=== PATIENT | female | born 1995 | race Hispanic/Latino ===

== ENCOUNTER 2017-04-23 04:29 | Emergency (ER) | payer MEDICAID, OTHER ==
[2017-04-23 04:57] LABS: HCG,QUAL RESULT NEGATIVE (NEGATIVE)
[2017-04-23 05:00] LABS: APPEARANCE,URINE Clear (CLEAR); BILIRUBIN,URINE Negative (NEGATIVE); COLOR,URINE Yellow (YELLOW); GLUCOSE, URINE (UA) Negative (NEGATIVE); KETONES,URINE Trace mg/dL (NEGATIVE); LEUKOCYTE ESTERASE ,URINE Small (NEGATIVE); NITRATE,URINE Negative (NEGATIVE); OCCULT BLOOD,URINE Negative (NEGATIVE); PH,URINE 5.5 (5.0-8.0); PROTEIN,URINE Negative (NEGATIVE)
[2017-04-23 05:15] LABS: BACTERIA,URINE None Seen /HPF (None Seen); MUCUS,URINE Rare LPF (None Seen); RBC,URINE None Seen /HPF (0-1); SQUAMOUS EPITHELIAL CELL,UR Rare /LPF (0-2); WBC,URINE 0-1 /HPF (0-1)
[2017-04-23] MEDS ORDERED: KETOROLAC TROMETHAMINE 60 MG/2 ML VIAL ONE (05:28)
== END 2017-04-23 06:14 | disposition home or self-care (01) ==
LOC: EDH 04:29
DX: S39.011A Strain of muscle, fascia and tendon of abdomen, initial encounter (principal); Z72.0 Tobacco use; Z98.890 Other specified postprocedural states; X58.XXXA Exposure to other specified factors, initial encounter; Y93.89 Activity, other specified; Y92.89 Other specified places as the place of occurrence of the external cause; Y99.8 Other external cause status
CPT/HCPCS: 81001; 81025; 96372; 99284; J1885

== ENCOUNTER 2017-05-24 12:03 | Emergency (ER) | payer SELFPAY | END 2017-05-24 13:55 | disposition home or self-care (01) | LOC: EDH 12:03 | DX: R11.2 Nausea with vomiting, unspecified (principal); R23.3 Spontaneous ecchymoses; Z72.0 Tobacco use | CPT/HCPCS: 99281 ==

== ENCOUNTER 2019-01-04 18:31 | Emergency (ER) | payer OTHER ==
[2019-01-04 19:21] LABS: BASOPHILS % (AUTO) 0.6 % (0.0-5.0); EOSINOPHILS % (AUTO) 0.8 % (0.0-8.0); HEMATOCRIT 38.6 % (36-48); LYMPHOCYTES % (AUTO) 21.7 % (21.0-51.0); MEAN CORPUSCULAR HEMOGLOBIN 28.4 pg (27.0-33.0); MEAN CORPUSCULAR HGB CONC 33.4 g/dL (32.0-36.0); MEAN CORPUSCULAR VOLUME 84.9 fL (80-100); NEUTROPHILS % (AUTO) 68.9 % (40.0-77.0); PLATELET COUNT (AUTO) 264 K/uL (130-400); RED BLOOD CELL COUNT(AUTO) 4.55 MIL/uL (4.00-5.50); WHITE BLOOD COUNT (AUTO) 11.3 K/uL (4.8-10.8)
[2019-01-04 19:25] LABS: CREATININE 0.9 mg/dL (0.5-1.5); POTASSIUM 3.5 mmol/L (3.5-5.1)
[2019-01-04 19:27] LABS: APPEARANCE,URINE Cloudy (CLEAR); BILIRUBIN,URINE Negative (NEGATIVE); COLOR,URINE Yellow (YELLOW); GLUCOSE, URINE (UA) Negative (NEGATIVE); KETONES,URINE Negative (NEGATIVE); LEUKOCYTE ESTERASE ,URINE Small (NEGATIVE); NITRATE,URINE Negative (NEGATIVE); OCCULT BLOOD,URINE Negative (NEGATIVE); PH,URINE 7.5 (5.0-8.0); PROTEIN,URINE Negative (NEGATIVE)
[2019-01-04 19:29] LABS: HCG,QUAL RESULT NEGATIVE (NEGATIVE)
[2019-01-04 19:34] LABS: AMPHET/METH SCREEN,URINE NEGATIVE (NEGATIVE); BARBITURATE SCREEN, URINE NEGATIVE (NEGATIVE); BENZODIAZEPINES SCREEN,URINE NEGATIVE (NEGATIVE); CANNABINOID SCREEN,URINE NEGATIVE (NEGATIVE); COCAINE SCREEN,URINE NEGATIVE (NEGATIVE); OPIATE SCREEN,URINE NEGATIVE (NEGATIVE); PHENCYCLIDINE SCREEN,URINE NEGATIVE (NEGATIVE)
[2019-01-04 20:08] LABS: BACTERIA,URINE Moderate /HPF (None Seen); CALCIUM OXALATE CRYSTALS,UR Few /LPF (None Seen); MUCUS,URINE Few LPF (None Seen)
== END 2019-01-04 20:04 | disposition home or self-care (01) ==
LOC: EDH 18:31
DX: F17.200 Nicotine dependence, unspecified, uncomplicated (principal); Z98.890 Other specified postprocedural states
CPT/HCPCS: 36415; 80048; 80305; 81001; 81025; 85025

== ENCOUNTER 2019-01-13 20:32 | Emergency (ER) | payer SELFPAY | END 2019-01-13 21:22 | disposition left against medical advice (07) | LOC: EDH 20:32 | DX: M54.5 Low back pain (principal); Z53.21 Procedure and treatment not carried out due to patient leaving prior to being seen by health care provider; Z72.0 Tobacco use ==

== ENCOUNTER 2020-11-23 19:55 | Emergency (ER) | payer OTHER ==
[~2020-11-23] VITALS: Ht 152.4 cm; Wt 127.0 kg
[2020-11-23 20:03] VITALS: BP 137/90
[2020-11-23 20:27] LABS: APPEARANCE,URINE Cloudy (CLEAR); BILIRUBIN,URINE Negative (NEGATIVE); COLOR,URINE Dark Yellow (YELLOW); GLUCOSE, URINE (UA) Negative (NEGATIVE); KETONES,URINE Trace mg/dL (NEGATIVE); LEUKOCYTE ESTERASE ,URINE Moderate (NEGATIVE); NITRATE,URINE Negative (NEGATIVE); OCCULT BLOOD,URINE Negative (NEGATIVE); PROTEIN,URINE Negative (NEGATIVE)
[2020-11-23] MEDS ORDERED: LIDOCAINE HCL 2% VISCOUS 15 ML UDCUP ONE (20:27)
[2020-11-23] MEDS ORDERED: MAG/ALUM/SIMETH 30 ML UDCUP PO ONE (20:30)
[2020-11-23] MEDS ORDERED: ONDANSETRON 4MG TABLET PO ONE (20:30)
[2020-11-23] MEDS ORDERED: FAMOTIDINE 20MG TAB PO ONE (20:30)
[2020-11-23 20:37] LABS: BASOPHILS % (AUTO) 0.5 % (0.0-5.0); EOSINOPHILS % (AUTO) 1.7 % (0.0-8.0); HEMATOCRIT 43.6 % (36-48); LYMPHOCYTES % (AUTO) 23.2 % (21.0-51.0); MEAN CORPUSCULAR HEMOGLOBIN 27.3 pg (27.0-33.0); MEAN CORPUSCULAR HGB CONC 31.4 g/dL (32.0-36.0); MEAN CORPUSCULAR VOLUME 86.9 fL (79-99); MONOCYTES % (AUTO) 8.8 % (3.0-13.0); NEUTROPHILS % (AUTO) 64.7 % (40.0-77.0); PLATELET COUNT (AUTO) 265 K/uL (130-400); RED BLOOD CELL COUNT(AUTO) 5.02 MIL/uL (4.00-5.50); RED CELL DISTRIBUTION WIDTH 13.5 % (11.0-15.5); WHITE BLOOD COUNT (AUTO) 8.1 K/uL (4.8-10.8)
[2020-11-23 20:46] LABS: CREATININE 0.9 mg/dL (0.5-1.5); POTASSIUM 3.7 mmol/L (3.5-5.1)
[2020-11-23 20:51] LABS: ALBUMIN 3.6 g/dL (3.5-5.0); BILIRUBIN,TOTAL 0.6 mg/dL (0.2-1.0); TOTAL PROTEIN, SERUM 8.1 g/dL (6.0-8.3)
[2020-11-23 20:51] LABS: BACTERIA,URINE Few /HPF (None Seen); RBC,URINE 0-1 /HPF (0-1)
[2020-11-23 20:52] LABS: MUCUS,URINE Rare LPF (None Seen); SQUAMOUS EPITHELIAL CELL,UR Few /HPF (0-2)
[2020-11-23] MEDS ORDERED: LIDOCAINE HCL-MPF 1% 2ML VIAL ONE (20:58)
[2020-11-23] MEDS ORDERED: CEFTRIAXONE 1G VIAL IM ONE (21:00)
[2020-11-23] MEDS ORDERED: CEPH500B PO (21:14)
[2020-11-23] MEDS ORDERED: FAMO-136 PO (21:14)
[2020-11-23] MEDS ORDERED: DICY20TA2 PO (21:14)
== END 2020-11-23 21:33 | disposition home or self-care (01) ==
LOC: EDH 19:55
DX: K29.70 Gastritis, unspecified, without bleeding (principal); N39.0 Urinary tract infection, site not specified; E66.9 Obesity, unspecified; Z68.43 Body mass index [BMI] 50.0-59.9, adult; Z79.899 Other long term (current) drug therapy
CPT/HCPCS: 36415; 76705; 80053; 81001; 81025; 83690; 85025; 87088; 96372; 99284; J0696; J3490; Q0162

== ENCOUNTER 2022-07-11 21:56 | Emergency (ER) | payer OTHER ==
[~2022-07-11] VITALS: Ht 152.4 cm; Wt 133.8 kg
[~2022-07-11 21:56] MED LIST: CEPH500B PO; DICY20TA2 PO; FAMO-136 PO
[2022-07-11 22:42] LABS: APPEARANCE,URINE CLOUDY (CLEAR); BILIRUBIN,URINE NEGATIVE (NEGATIVE); COLOR,URINE BROWN (YELLOW); GLUCOSE, URINE (UA) NEGATIVE (NEGATIVE); KETONES,URINE NEGATIVE (NEGATIVE); LEUKOCYTE ESTERASE ,URINE 250 Leu/uL (NEGATIVE); NITRATE,URINE NEGATIVE (NEGATIVE); OCCULT BLOOD,URINE LARGE (NEGATIVE); PH,URINE 6.5 (5.0-8.0); PROTEIN,URINE 20 mg/dL (NEGATIVE)
[2022-07-11 22:45] LABS: RBC,URINE TNTC /HPF (0-1); SQUAMOUS EPITHELIAL CELL,UR FEW /HPF (0-2); WBC,URINE 51-100 /HPF (0-1)
[2022-07-11 23:01] LABS: HCG,QUALITATIVE URINE NEGATIVE (NEGATIVE)
[2022-07-11 23:29] VITALS: BP 151/76
[2022-07-11] MEDS ORDERED: SULF1TAB42 PO (23:30)
[2022-07-12] MEDS ORDERED: CEFTRIAXONE 1G VIAL IM ONE
== END 2022-07-11 23:50 | disposition home or self-care (01) ==
LOC: EDH 21:56
DX: N39.0 Urinary tract infection, site not specified (principal); Z79.899 Other long term (current) drug therapy; Z98.890 Other specified postprocedural states
CPT/HCPCS: 99284; 87088; 81001; 81025; 72100; 96372; J0696

== ENCOUNTER 2022-07-15 19:44 | Emergency (ER) | payer OTHER ==
[~2022-07-15] VITALS: Ht 152.4 cm; Wt 135.6 kg
[~2022-07-15 19:44] MED LIST changes: +SULF1TAB42 PO
[2022-07-15 21:20] VITALS: BP 140/91
[2022-07-15] MEDS ORDERED: ACETAMINOPHEN 500 MG TABLET PO ONE (22:30)
[2022-07-16] MEDS ORDERED: IBUPROFEN 600 MG TABLET PO ONE
[2022-07-16] MEDS ORDERED: SOLU-MEDROL 125MG VIAL IM ONE
[2022-07-16] MEDS ORDERED: PRED20TA3 PO (00:52)
== END 2022-07-16 01:01 | disposition home or self-care (01) ==
LOC: EDH 19:44
DX: T36.8X5A Adverse effect of other systemic antibiotics, initial encounter (principal); Y92.89 Other specified places as the place of occurrence of the external cause; Z79.899 Other long term (current) drug therapy; Z98.890 Other specified postprocedural states; Z90.79 Acquired absence of other genital organ(s)
CPT/HCPCS: 96372; 99283; J2930

== ENCOUNTER 2023-02-08 13:50 | Emergency (ER) | payer OTHER ==
[~2023-02-08] VITALS: Ht 152.4 cm; Wt 133.8 kg
[~2023-02-08 13:50] MED LIST changes: +PRED20TA3 PO
[2023-02-08] MEDS ORDERED: 0.9%NACL 1000ML 1,000 ML IV ONE (15:00)
[2023-02-08 15:36] LABS: BASOPHILS # (AUTO) 0.05 K/uL (0.00-0.20); BASOPHILS % (AUTO) 0.5 % (0.0-5.0); HEMATOCRIT 40.8 % (36-48); LYMPHOCYTES # (AUTO) 2.5 K/uL (1.0-4.8); LYMPHOCYTES % (AUTO) 24.3 % (21.0-51.0); MEAN CORPUSCULAR HEMOGLOBIN 27.7 pg (27.0-33.0); MEAN CORPUSCULAR HGB CONC 32.6 g/dL (32.0-36.0); MONOCYTES # (AUTO) 0.8 K/uL (0.1-1.0); MONOCYTES % (AUTO) 7.3 % (3.0-13.0); NEUTROPHILS # (AUTO) 6.8 K/uL (1.8-7.7); NEUTROPHILS % (AUTO) 65.9 % (40.0-77.0); PLATELET COUNT (AUTO) 271 K/uL (130-400); RED CELL DISTRIBUTION WIDTH 13.4 % (11.0-15.5); WHITE BLOOD COUNT (AUTO) 10.3 K/uL (4.8-10.8)
[2023-02-08 15:46] LABS: APPEARANCE,URINE CLEAR (CLEAR); BILIRUBIN,URINE NEGATIVE (NEGATIVE); COLOR,URINE LIGHT-YELLOW (YELLOW); GLUCOSE, URINE (UA) NEGATIVE (NEGATIVE); KETONES,URINE NEGATIVE (NEGATIVE); LEUKOCYTE ESTERASE ,URINE 75 Leu/uL (NEGATIVE); NITRATE,URINE NEGATIVE (NEGATIVE); OCCULT BLOOD,URINE NEGATIVE (NEGATIVE); PROTEIN,URINE NEGATIVE (NEGATIVE); UROBILINOGEN,URINE 0.2 mg/dL (0.2-1.0)
[2023-02-08 15:48] LABS: ADD UA MICROSCOPIC YES
[2023-02-08 15:50] LABS: HCG,QUALITATIVE URINE NEGATIVE (NEGATIVE)
[2023-02-08 15:51] LABS: CREATININE 0.8 mg/dL (0.5-1.5); POTASSIUM 3.7 mmol/L (3.5-5.1)
[2023-02-08 15:51] LABS: BACTERIA,URINE RARE /HPF (None Seen); OTHER CASTS, URINE 1 /LPF (None Seen); RBC,URINE 0-1 /HPF (0-1); SQUAMOUS EPITHELIAL CELL,UR RARE /HPF (0-2)
[2023-02-08 15:57] LABS: B-TYPE NATRIURETIC PEPTIDE 33 pg/mL (0-100)
[2023-02-08] MEDS ORDERED: IOHEXOL 350 MG/ML 100ML INFUS..BTL IV ONE (16:02)
[2023-02-08 16:03] LABS: ALBUMIN 3.5 g/dL (3.5-5.0); BILIRUBIN,TOTAL 0.4 mg/dL (0.2-1.0)
[2023-02-08] MEDS ORDERED: PANT40TA54 PO (17:20)
[2023-02-08] MEDS ORDERED: CEPH500C2 PO (17:20)
[2023-02-08] MEDS ORDERED: ACET-66 PO (17:20)
[2023-02-08 17:35] VITALS: BP 148/62; PULSE 65; RESP 16; O2SAT 97
== END 2023-02-08 17:53 | disposition home or self-care (01) ==
LOC: EDH 13:50
DX: N39.0 Urinary tract infection, site not specified (principal); R07.89 Other chest pain; R06.02 Shortness of breath; Z79.899 Other long term (current) drug therapy; Z90.89 Acquired absence of other organs; Z98.890 Other specified postprocedural states; Z87.891 Personal history of nicotine dependence; Z88.1 Allergy status to other antibiotic agents; Z88.2 Allergy status to sulfonamides
CPT/HCPCS: 99285; 96360; 71270; 71045; 84484; 80053; 83880; 85025; 85378; 87088; 81001; 81025; 36415; 93005; J7030; Q9967

== ENCOUNTER 2023-10-16 13:11 | Emergency (ER) | payer OTHER ==
[~2023-10-16] VITALS: Ht 152.4 cm; Wt 133.8 kg
[~2023-10-16 13:11] MED LIST changes: +ACET-66 PO; +CEPH500C2 PO; +PANT40TA54 PO
[2023-10-16 15:38] LABS: APPEARANCE,URINE CLEAR (CLEAR); BILIRUBIN,URINE NEGATIVE (NEGATIVE); COLOR,URINE YELLOW (YELLOW); GLUCOSE, URINE (UA) NEGATIVE (NEGATIVE); KETONES,URINE NEGATIVE (NEGATIVE); LEUKOCYTE ESTERASE ,URINE 500 Leu/uL (NEGATIVE); NITRATE,URINE NEGATIVE (NEGATIVE); OCCULT BLOOD,URINE NEGATIVE (NEGATIVE); PH,URINE 6.5 (5.0-8.0); PROTEIN,URINE NEGATIVE (NEGATIVE)
[2023-10-16 15:39] LABS: ADD UA MICROSCOPIC YES
[2023-10-16 15:41] LABS: BACTERIA,URINE RARE /HPF (None Seen); SQUAMOUS EPITHELIAL CELL,UR FEW /HPF (0-2); WBC,URINE 26-50 /HPF (0-1)
[2023-10-16] MEDS ORDERED: METR-172 PO (16:11)
[2023-10-16] MEDS ORDERED: NITR100C4 PO (16:11)
[2023-10-16] MEDS: CEFTRIAXONE 1G VIAL IM STA (16:18)
[2023-10-16 16:39] VITALS: BP 154/88; PULSE 74; RESP 18; O2SAT 97
== END 2023-10-16 16:58 | disposition home or self-care (01) ==
LOC: EDH 13:11
DX: N39.0 Urinary tract infection, site not specified (principal); N76.0 Acute vaginitis; B96.89 Other specified bacterial agents as the cause of diseases classified elsewhere; I10 Essential (primary) hypertension; Z88.1 Allergy status to other antibiotic agents; Z88.2 Allergy status to sulfonamides; Z79.899 Other long term (current) drug therapy; Z98.890 Other specified postprocedural states
CPT/HCPCS: 99283; 87086; 81001; 96372; J0696